=== PATIENT | female | born 1995 | race Caucasian/White ===

== ENCOUNTER 2017-08-23 07:36 | Inpatient (IN) | payer MEDICAID, OTHER ==
[~2017-08-23] VITALS: Ht 152.4 cm; Wt 72.3 kg
[2017-08-23 07:50] VITALS: Ht 152.4 cm; Wt 72.3 kg
[2017-08-23 07:51] VITALS: BP 118/80; PULSE 80; RESP 19
[2017-08-23] MEDS ORDERED: PREN-93 PO (07:55)
[2017-08-23] MEDS ORDERED: AMPICILLIN 2 GM/NS (PMX) 100 ML IV ONE (08:30)
[2017-08-23] MEDS ORDERED: MISOPROSTOL 200 MCG TAB PR PRN ×2 (08:30→12:30)
[2017-08-23] MEDS ORDERED: METHYLERGONOVINE 0.2 MG INJ IM PRN ×2 (08:30→12:30)
[2017-08-23] MEDS ORDERED: BUTORPHANOL 2 MG INJ IV PRN (08:30)
[2017-08-23] MEDS ORDERED: LIDOCAINE 1% (MPF) 30 ML INJ INJ PRN (08:30)
[2017-08-23] MEDS ORDERED: OXYTOCIN 30 UNITS/LR 500 ML IV PRN ×2 (08:30→12:30)
[2017-08-23] MEDS ORDERED: CARBOPROST 250 MCG INJ IM PRN ×2 (08:30→12:30)
[2017-08-23] MEDS: LACTATED RINGER'S 1,000 ML IV SCH ×2 (09:05→10:42)
[2017-08-23 09:06] LABS: BASOPHILS % 0.2 % (0.0-2.0); EOSINOPHILS # 0.1 10^3/ul (0.0-0.5); EOSINOPHILS % 1.1 % (0.0-7.0); HEMATOCRIT 34.1 % (37.0-47.0); HEMOGLOBIN 11.2 g/dl (12.0-16.0); LYMPHOCYTES % 24.7 % (15.0-51.0); MEAN CORPUSCULAR HEMOGLOBIN 30.3 pg (29.0-33.0); MEAN CORPUSCULAR HGB CONC 32.8 g/dl (32.0-37.0); MEAN CORPUSCULAR VOLUME 92.2 fl (82.0-101.0); MEAN PLATELET VOLUME 11.4 fl (7.4-10.4); MONOCYTE # 0.4 10^3/ul (0.3-0.9); MONOCYTES % 5.4 % (0.0-11.0); NEUTROPHIL # 5.5 10^3/ul (1.6-7.5); NEUTROPHILS % 68.4 % (39.0-77.0); PLATELET COUNT 227 10^3/UL (140-415); RED CELL DISTRIBUTION WIDTH 14.6 % (11.5-14.5); WHITE BLOOD COUNT 8.1 10^3/ul (4.8-10.8)
[2017-08-23 09:30] LABS: INR 0.83; PROTIME 11.5 Sec (11.9-14.9); PT RATIO 0.9
[2017-08-23] MEDS ORDERED: OXYTOCIN 30 UNITS/LR 500 ML IV SCH (09:30)
--- NOTE | 2017-08-23 09:47 | LDN ---
Date/Time of Note Date/Time of Note DATE: 08/23/17 TIME: 09:45 Delivery Summary Placenta Delivered: Spontaneously Meconium: none Episiotomy: No Perineal laceration: 1 Anesthesia type: Local Sponge & Needle done & correct: Yes All needle counts correct: Yes Any foreign bodies felt in the: No Problems: Infant Delivery Information Apgars 1 Minute: 8 5 Minute: 9 Suctioning Nose & mouth suctioned at mitra: Yes Delee suction performed: Yes Umbilical Cord Umbilical cord with: 3 Vessels Cord presentations: no nuchal cord Cord Blood was obtained: No Mother & Baby Disposition Disposition Mom & Baby to Maternity; Good: Yes Baby to NICU: No KEVON RADER M.D. Aug 23, 2017 09:47
--- NOTE | 2017-08-23 09:48 | HP ---
Date/Time of Note Date/Time of Note DATE: 08/23/17 TIME: 09:47 OB - History Hx of Present Free Text/Dictation 38+wks in labor : 2 Para: 1 Care: Good Care Ultrasounds: Normal mid trimester US Medical Complications: None Past Family/Social History * Past Medical, Surgical, Family and Obstetric Histories reviewed from chart. OB Admission Exam Vital Signs Vital Signs Vital Signs Date Time Temp Pulse Resp B/P Pulse Ox O2 Delivery O2 Flow Rate FiO2 08/23/17 07:51 98.2 80 19 118/80 99 Room Air Physical Exam Abdomen: WNL Heart Rate: 140's Accelerations: Accelerations Present Decelerations: No Decelerations Varibility: Moderate Contractions on Admission: 6-10 Minutes Apart Last 72 hours Lab Results CBC & BMP 08/23/17 08:43 OB Assessment/Plan Reason for admission: observation Plan: Expectant Management KEVON RADER M.D. Aug 23, 2017 09:48
--- NOTE | 2017-08-23 10:19 | QN ---
Documentation Comment Patient had spontaneous delivery while this service was in route to hospital Care was given by on-call physician Patient delivered with attendance of physician however spontaneously without hands-on on the job Delivery time was recorded as 9:36 First-degree vaginal laceration was repaired by the on-call physician MARY PICKERING MD Aug 23, 2017 10:18
[2017-08-23 11:40] VITALS: BP 123/87; PULSE 67; RESP 19
[2017-08-23] MEDS ORDERED: AMPICILLIN 1 GM/NS (PMX) 50 ML IV SCH (12:00)
[2017-08-23 12:30] VITALS: BP 109/80; PULSE 62; RESP 18
[2017-08-23] MEDS ORDERED: WITCH HAZEL/GLYCERIN PAD PR PRN (12:30)
[2017-08-23] MEDS ORDERED: LANOLIN 7 GM TUBE TOP PRN (12:30)
[2017-08-23] MEDS ORDERED: SENNA/DOCUSATE NA (8.6MG/50MG) TAB PO PRN (12:30)
[2017-08-23] MEDS ORDERED: BENZOCAINE 20% 56 ML SPRAY TOP PRN (12:30)
[2017-08-23] MEDS ORDERED: ZOLPIDEM 5 MG TAB PO PRN (12:30)
--- NOTE | 2017-08-23 12:38 | TRIAGE ---
OB Triage Datetime Report Generated by CPN: 08/23/2017 12:38 Datetime: 08/23/2017 10:44 Stage of : Recovery Pain Assessment Pain Scale: 0 Pain Presence: None/Denies Pain Type: N/A Pain Goal: 0 Pain Relief Measures: Comfort Measures Datetime: 08/23/2017 10:29 Stage of : Recovery Pain Assessment Pain Scale: 0 Pain Presence: None/Denies Pain Type: N/A Pain Goal: 0 Pain Relief Measures: Comfort Measures Datetime: 08/23/2017 10:14 Stage of : Recovery Pain Assessment Pain Scale: 0 Pain Presence: None/Denies Pain Type: N/A Pain Goal: 0 Pain Relief Measures: Comfort Measures Datetime: 08/23/2017 09:51 Stage of : Recovery Temperature Route: Oral Pain Assessment Pain Scale: 0 Pain Presence: None/Denies Pain Type: N/A Pain Goal: 0 Pain Relief Measures: Comfort Measures Datetime: 08/23/2017 09:28 Vaginal Exam Dilatation (cms): 10.0 Effacement (%): 100 Station: 0 Exam By: [email or web address] Datetime: 08/23/2017 09:06 Stage of : Labor Maternal Assessment Level of Consciousness: Fully Conscious DTR's/Clonus: DTRs 2+; No Clonus Headache: Denies Blurred Vision: No Respiratory Effort: Unlabored Breath Sounds, Left: Clear and Equal Breath Sounds, Right: Clear and Equal Nausea/Vomiting: Denies RUQ Epigastric Pain: Denies Labor Evaluation Frequency: 2-4 Monitor Mode: External Duration (sec)2399: 70-100 Quality: Mild Pattern: Normal: <= 5 Contractions in 10 Minutes Resting Tone Tanana: Relaxed Heart Rate FHR Baseline Rate: 150 Monitor Mode: External US FHR Baseline Changes: No Baseline Change Variability: Moderate 6-25 bpm Accelerations: 15X15 Decelerations: None Category: Category I Pain Assessment Pain Scale: 6 Pain Presence: Intermittent Pain Type: Cramping; Contraction Pain Location: Abdomen Pain Goal: 0 Pain Relief Measures: Pain Medication Given Pain Assessment Comments: PT STATES WOULD LIKE AN EPIDRUAL UMA . INFORM PT PENDING LAB WK. PT STA GURMEET UNDERSTANDING. Membrane Status: Intact Datetime: 08/23/2017 08:35 Stage of : Labor Headache: Denies Blurred Vision: No RUQ Epigastric Pain: Denies Facial Edema: None Labor Evaluation Frequency: 4-5 Monitor Mode: External Duration (sec)2399: 60 Quality: Moderate Pattern: Normal: <= 5 Contractions in 10 Minutes Resting Tone Tanana: Relaxed Heart Rate FHR Baseline Rate: 145 Monitor Mode: External US FHR Baseline Changes: No Baseline Change Variability: Moderate 6-25 bpm Accelerations: 15X15 Decelerations: None Category: Category I Pain Assessment Pain Scale: 6 Pain Presence: Intermittent Pain Type: Contraction Pain Location: Abdomen Pain Relief Measures: Comfort Measures Membrane Status: Ruptured Datetime: 08/23/2017 08:30 Assessment Type: Admission Assessment Vaginal Bleeding: None Maternal Assessment Level of Consciousness: Fully Conscious DTR's/Clonus: DTRs 2+; No Clonus Headache: Denies Blurred Vision: No Respiratory Effort: Unlabored; Regular Rhythm; Equal Expansion Breath Sounds, Left: Clear and Equal Breath Sounds, Right: Clear and Equal Nausea/Vomiting: Denies RUQ Epigastric Pain: Denies Lower Extremities Edema: None Degree: None Upper Extremities Edema: None Degree: None Facial Edema: None Fall Risk Assessment History of Falling: (0) No Secondary Diagnosis: (0) No Ambulatory Aid: (0) Bedrest/Nurse Assist IV Therapy: (0) No Gait: (0) Normal/Bedrest/Immobile Mental Status: (0) Oriented to Own Ability Fall Score: 0 Fall Risk Score Definition: No Risk: No action required Labor Evaluation Frequency: 4 Duration (sec)2399: 60 Quality: Moderate Pattern: Normal: <= 5 Contractions in 10 Minutes Resting Tone Tanana: Relaxed Heart Rate FHR Baseline Rate: 150 Variability: Moderate 6-25 bpm Accelerations: 15X15 Decelerations: None Category: Category I Pain Assessment Pain Scale: 4 Pain Presence: Intermittent Pain Type: Contraction Pain Location: Abdomen Membrane Status: Ruptured Membranes Ruptured Date/Time: 08/23/2017 06:00 Membranes Rupture Method: Spontaneous Amniotic Fluid Color: Clear Amniotic Fluid Amount: Moderate Amniotic Fluid Odor: None Datetime: 08/23/2017 08:24 Stage of : Labor Datetime: 08/23/2017 08:18 Maternal Assessment Level of Consciousness: Fully Conscious DTR's/Clonus: DTRs 1+ Headache: Denies Breath Sounds, Left: Clear and Equal Breath Sounds, Right: Clear and Equal Nausea/Vomiting: Denies RUQ Epigastric Pain: Denies Labor Evaluation Frequency: 5 Monitor Mode: External Duration (sec)2399: 50-60 Quality: Mild Pattern: Normal: <= 5 Contractions in 10 Minutes Resting Tone Tanana: Relaxed Heart Rate FHR Baseline Rate: 140 Monitor Mode: External US Variability: Moderate 6-25 bpm Accelerations: 15X15 Decelerations: None Pain Assessment Pain Scale: 4 Pain Presence: Intermittent Pain Type: Contraction Pain Location: Back Pain Goal: 3 Membrane Status: Ruptured Datetime: 08/23/2017 08:00 Maternal Assessment Level of Consciousness: Fully Conscious DTR's/Clonus: DTRs 1+ Headache: Denies Blurred Vision: No Respiratory Effort: Unlabored Breath Sounds, Left: Clear and Equal Breath Sounds, Right: Clear and Equal Nausea/Vomiting: Denies RUQ Epigastric Pain: Denies Facial Edema: None Labor Evaluation Frequency: 5 Monitor Mode: External Duration (sec)2399: 50-60 Quality: Mild Pattern: Normal: <= 5 Contractions in 10 Minutes Resting Tone Tanana: Relaxed Heart Rate FHR Baseline Rate: 140 Monitor Mode: External US Variability: Moderate 6-25 bpm Accelerations: 15X15 Decelerations: None Category: Category I Pain Assessment Pain Scale: 4 Pain Presence: Intermittent Pain Type: Contraction Pain Location: Back Pain Goal: 3 Membrane Status: Ruptured Datetime: 08/23/2017 07:46 Time of Arrival: 08/23/2017 08:30 EGA: 38.0 Arrived By: Ambulatory Arrived From: Home Datetime: 08/23/2017 07:40 Vaginal Exam Dilatation (cms): 4.0 Effacement (%): 100 Station: -4 Exam By: RAMAN PERLA Membrane Status: Ruptured Membranes Rupture Method: Spontaneous Amniotic Fluid Color: Clear Amniotic Fluid Amount: Large Amniotic Fluid Odor: None Vaginal Bleeding: None Nitrazine: Positive Cervix, Consistency: Soft Cervix, Position: Posterior Presentation 'A': Cephalic Datetime: 08/23/2017 07:35 Assessment Type: Triage Maternal Assessment Level of Consciousness: Fully Conscious DTR's/Clonus: DTRs 2+; No Clonus Headache: Denies Blurred Vision: No Respiratory Effort: Unlabored; Regular Rhythm; Equal Expansion Breath Sounds, Left: Clear and Equal Breath Sounds, Right: Clear and Equal Nausea/Vomiting: Denies RUQ Epigastric Pain: Denies Lower Extremities Edema: None Degree: None Upper Extremities Edema: None Degree: None Facial Edema: None Fall Risk Assessment History of Falling: (0) No Secondary Diagnosis: (0) No Ambulatory Aid: (0) Bedrest/Nurse Assist IV Therapy: (0) No Gait: (0) Normal/Bedrest/Immobile Mental Status: (0) Oriented to Own Ability Fall Score: 0 Fall Risk Score Definition: No Risk: No action required Datetime: 08/23/2017 07:30 Time of Arrival: 08/23/2017 07:30 Arrived By: Ambulatory Arrived From: Home Chief Complaint: SROM SINCE 0600 Movement: Present Contractions: Denies/Absent Rupture of Membranes: Ruptured Vaginal Discharge: Denies Recent Sexual Intercouse: Denies Abdominal Trauma: Not Applicable Patient Complaints: Other Additional Patient Complaints: NONE Time Provider Notified: 08/23/2017 07:40 Provider Notified: ZONIA Initial Plan: MONITOR, NITRAZINE TEST AND VE
[2017-08-23] MEDS: IBUPROFEN 600 MG TAB PO SCH ×2 (12:39→18:31)
[2017-08-23] MEDS: LACTATED RINGER'S 1,000 ML IV* SCH ×2 (14:40→20:05)
[2017-08-23 15:29] VITALS: BP 123/87; PULSE 67; RESP 19
[2017-08-23 16:30] VITALS: BP 109/76; PULSE 70; RESP 19
[2017-08-23] MEDS: OXYCODONE/ASPIRIN (4.88/325) TAB PO PRN (17:20)
[2017-08-23 20:10] VITALS: BP 107/83; PULSE 73; RESP 18
[2017-08-23] MEDS: SENNA/DOCUSATE NA (8.6MG/50MG) TAB PO SCH (21:55)
[2017-08-24] MEDS: OXYCODONE/ASPIRIN (4.88/325) TAB PO PRN (03:24)
[2017-08-24 03:30] VITALS: BP 119/72; PULSE 78; RESP 18
[2017-08-24] MEDS: LACTATED RINGER'S 1,000 ML IV* SCH ×2 (04:05→12:05)
[2017-08-24 07:33] LABS: BASOPHILS % 0.4 % (0.0-2.0); EOSINOPHILS # 0.1 10^3/ul (0.0-0.5); EOSINOPHILS % 1.5 % (0.0-7.0); HEMATOCRIT 29.7 % (37.0-47.0); HEMOGLOBIN 9.8 g/dl (12.0-16.0); LYMPHOCYTES # 3.1 10^3/ul (0.8-2.9); LYMPHOCYTES % 38.5 % (15.0-51.0); MEAN CORPUSCULAR HEMOGLOBIN 30.7 pg (29.0-33.0); MEAN CORPUSCULAR VOLUME 93.1 fl (82.0-101.0); MEAN PLATELET VOLUME 11.6 fl (7.4-10.4); MONOCYTE # 0.5 10^3/ul (0.3-0.9); MONOCYTES % 6.8 % (0.0-11.0); NEUTROPHIL # 4.2 10^3/ul (1.6-7.5); NEUTROPHILS % 52.4 % (39.0-77.0); PLATELET COUNT 208 10^3/UL (140-415); RED BLOOD COUNT 3.19 10^6/ul (4.20-5.40); RED CELL DISTRIBUTION WIDTH 14.6 % (11.5-14.5)
[2017-08-24 08:00] VITALS: BP 108/70; PULSE 71; RESP 18
[2017-08-24] MEDS: IBUPROFEN 600 MG TAB PO SCH ×4 (08:00→18:30)
[2017-08-24] MEDS: SENNA/DOCUSATE NA (8.6MG/50MG) TAB PO SCH ×2 (10:02→21:15)
[2017-08-24 16:00] VITALS: BP 119/67; PULSE 75; RESP 16
[2017-08-24 16:16] VITALS: BP 119/67; RESP 16
--- NOTE | 2017-08-24 17:59 | DS ---
Date/Time of Note Date/Time of Note Home today or next day DATE: 08/24/17 TIME: 17:55 Obstetrical Discharge Record Final Diagnosis Final Diagnosis: Term delivered Other Final Diagnosis Status post vaginal delivery Vaginal Delivery Obstetrical Delivery: Spontaneous Complications Augmentation: No Induction: No Condition on Discharge Physical Assessment Last Vitals: See nurse's notes Voiding: Yes Bowel Movement: Yes Breast: Soft, non-tender, Filling Fundus: Firm Abdomen and Incision: Abdomen is soft bowel sounds present Fundus is firm at umbilicus Episiotomy: Not applicable Perineum is healing Calf Tenderness: No Patient Condition: Good MARY PICKERING MD Aug 24, 2017 17:59
[2017-08-24] MEDS ORDERED: IBUP-1542 PO (18:02)
--- NOTE | 2017-08-24 18:02 | PD.PPDC ---
[employer] INSPECTOR Discharge Instruction Provider Information Physician Information 21 y/o female had vaginal delivery Diagnosis Final Diagnosis: S/P vaginal delivery Condition Patient Condition: Good Diet Diet: Resume Regular Diet Activity/Restrictions Activity: Normal Activity May Shower Restrictions: Nothing in the Vagina Return to Work or School: Oct 12, 2017 Follow-up Follow-up with Physician: 4, Week/Weeks Return to clinic for OB Instructions: Breast Tenderness Depression Comment: pelvic rest x 6 weeks MARY PICKERING MD Aug 24, 2017 18:02
[2017-08-24 20:00] VITALS: BP 122/89; PULSE 86; RESP 18
[2017-08-25] MEDS: OXYCODONE/ASPIRIN (4.88/325) TAB PO PRN ×2 (01:16→04:30)
[2017-08-25 04:00] VITALS: BP 120/79; PULSE 89; RESP 18
[2017-08-25] MEDS: IBUPROFEN 600 MG TAB PO SCH ×4 (05:47→18:07)
[2017-08-25 08:00] VITALS: BP 108/71; PULSE 75; RESP 19
[2017-08-25] MEDS: SENNA/DOCUSATE NA (8.6MG/50MG) TAB PO SCH (08:25)
[2017-08-25] MEDS ORDERED: DIPHTH/TET/ACEL PERTUSS (ADULT) 0.5 ML VIAL IM* ONE (09:00)
[2017-08-25 16:00] VITALS: BP 127/80; PULSE 78; RESP 19
== END 2017-08-25 18:40 | disposition home or self-care (01) | DRG 775 ==
LOC: OBT 07:36 → L-D 07:38 → OBT 07:40 → L-D 07:40 → PP1 11:35
PROVIDERS: ADMIT Obstetrics & Gynecology; ATTEND Obstetrics & Gynecology
PROC: 10E0XZZ Delivery of Products of Conception, External Approach (ICD-10-PCS; principal; 2017-08-23)
PROC: 0HQ9XZZ Repair Perineum Skin, External Approach (ICD-10-PCS; 2017-08-23)
PROC: 4A1HXCZ Monitoring of Products of Conception, Cardiac Rate, External Approach (ICD-10-PCS; 2017-08-23)
DX: O70.0 First degree perineal laceration during delivery (principal); Z37.0 Single live birth; Z3A.38 38 weeks gestation of pregnancy
CPT/HCPCS: 84112; 85025; 85610; 85730; 86592; 86900; 86901; 87340; 90715; G0463; J0290; J0595; J2590; J7120